=== PATIENT | female | born 1990 | race Caucasian/White ===

== ENCOUNTER 2017-12-14 05:58 | Inpatient (IN) ==
--- OUTSIDE RECORDS SUMMARY | 2017-12-14 06:07 | External Medical Summary | Continuity of Care Document ---
:1990 Author Organization [facility] Address [address] [place], [place] [address] Phone Allergies, Adverse Reactions, Alerts Substance Reaction Severity Status No Known Drug Allergies Unknown Active Medications Medication Instructions Dosage Effective Dates Status Comments (start - stop) 28 mg take 1 tablet by Not Available - Active iron-800 mcg oral route every tablet day Tylenol 325 mg take 1 tablet by - Active tablet oral route every 4 hours as needed as needed Problems Condition Effective Dates (start - stop) Clinical Status Suprvsn of preg w poor reprodctv or - obstet hx, first tri Pap Smear Screening, Cervix - 12 weeks gestation of - Procedures Procedure Date Pap Smear handling/transport Immuniz admnin, 1 vac, sngl/combo 19 Yrs + Flu Vaccine - Quadrivalent Initial OB Visit No 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 Results Test Name Date and Time Measure Units Reference Range Abnormal Flag Comments Panel Description: OBSTETRIC PANEL WHITE BLOOD CELL 10.2 Thousand/uL 3.8-10.8 N COUNT 14:48:00 RED BLOOD CELL 3.42 Million/uL 3.80-5.10 L COUNT 14:48:00 HEMOGLOBIN 11.0 g/dL 11.7-15.5 L 14:48:00 HEMATOCRIT 31.5 % 35.0-45.0 L 14:48:00 MCV 92.1 fL 80.0-100.0 N 14:48:00 MCH 32.2 pg 27.0-33.0 N 14:48:00 MCHC 34.9 g/dL 32.0-36.0 N 14:48:00 RDW 13.0 % 11.0-15.0 N 14:48:00 PLATELET COUNT 353 Thousand/uL 140-400 N 14:48:00 MPV 9.3 fL 7.5-12.5 N 14:48:00 ABSOLUTE 6936 cells/uL 2465-4691 N NEUTROPHILS 14:48:00 ABSOLUTE 2489 cells/uL 850-3900 N LYMPHOCYTES 14:48:00 ABSOLUTE 602 cells/uL 200-950 N MONOCYTES 14:48:00 ABSOLUTE 133 cells/uL 15-500 N EOSINOPHILS 14:48:00 ABSOLUTE 41 cells/uL 0-200 N BASOPHILS 14:48:00 NEUTROPHILS 68 % N 14:48:00 LYMPHOCYTES 24.4 % N 14:48:00 MONOCYTES 5.9 % N 14:48:00 EOSINOPHILS 1.3 % N 14:48:00 BASOPHILS 0.4 % N 14:48:00 ANTIBODY SCREEN, NO ANTIBODIES N RBC W/REFL ID, 14:48:00 DETECTED Reference range TITER AND AG No antibodies detected This assay is a screening test for the detection of red blood cell antibodies. The test is not to be used for pretransfusion screening or for the medical management of an alloimmunized . ABO GROUP B 14:48:00 RH TYPE RH(D) 14:48:00 POSITIVE RPR (DX) W/REFL NON-REACTIVE NON-REACTIV N TITER AND 14:48:00 E CONFIRMATORY TESTING HEPATITIS B NON-REACTIVE NON-REACTIV N SURFACE ANTIGEN 14:48:00 E RUBELLA ANTIBODY 11.20 index N Index (IGG) 14:48:00 Interpretation ----- <0.90 Not consistent with Immunity 0.90-0.99 Equivocal > or=1.00 Consistent with Immunity The presence of rubella IgG antibody suggests immunization or past or current infection withrubella virus.Test performed at [facility] [id number] [place] [address]Mirqqey r: JACOB AVILA DO,MPH Panel Description: HIV 1/2 ANTIGEN/ANTIBODY,FOURTH GENERATION W/RFL HIV NON-REACTIVE NON-REACTIVE N HIV-1 antigen and HIV-1/HIV- 2 antibodies were AG/AB, 14:48:00 notdetected. There is no laboratory evidence of 4TH GEN HIVinfection. PLEASE NOTE: This information has been disclosed toyou from records whose confidentiality may beprotected by state law. If your state requires suchprotection, then the state law prohibits you frommaking any further disclosure of the informationwithout the specific written consent of the personto whom it pertains, or as otherwise permitted by law.A general authorization for the release of medical orother information is NOT sufficient for this purpose. For additional information please refer [email or web address].[email or web address]/faq/XIH086(This link is being provided for informational/educational purposes only.) The performance of this assay has not been clinicallyvalidated in patients less than 2 years old. REPORT COMMENT:FASTING:NOTest performed at [facility] [id number] [place] [address]Cnszbgrg: JACOB AVILA DO,MPH Panel Description: Bacteria identified in Urine by Culture CULTURE, URINE, SEE NOTE A CULTURE, URINE, ROUTINE MICRO ROUTINE 15:14:00 NUMBER: [id number] TEST STATUS: PRELIMINARY SPECIMEN SOURCE: URINE SPECIMEN QUALITY: ADEQUATE RESULT: Greater than 100,000 CFU/mL of Escherichia coli , susceptibility test report to follow.REPORT COMMENT:RFASTING:UNKNOWNTest performed at [facility] [place] [address]Uiacoziy: JACOB AVILA DO,MPH Panel Description: Bacteria identified in Urine by Culture CULTURE, URINE, SEE NOTE A CULTURE, URINE, ROUTINE MICRO ROUTINE 15:14:00 NUMBER: [id number] TEST STATUS: FINAL SPECIMEN SOURCE: URINE SPECIMEN QUALITY: ADEQUATE RESULT: Greater than 100,000 CFU/mL of Escherichia coli E.coli INT JUNI AMOX/CLAVULANATE S <=2 AMPICILLIN S 4 AMP/SULBACTAM S 4 CEFAZOLIN NR <=4 1 CEFEPIME S <=1 CEFTRIAXONE S <=1 CIPROFLOXACIN S <=0.25 ERTAPENEM S <=0.5 GENTAMICIN S <=1 IMIPENEM S <=0.25 LEVOFLOXACIN S <=0.12 NITROFURANTOIN S <=16 PIP/TAZOBACTAM S <=4 TOBRAMYCIN S <=1 TRIMETHOPRIM/SULFA S <=20S=Susceptible I=Intermediate R=Resistant *=Not TestedNR=Not Reported NN=See Therapy CommentsTHERAPY COMMENTS Note 1: ORAL therapy: A cefazolin JUNI of < 32 predicts susceptibility to the oral agents cefaclor, cefdinir, cefpodoxime, cefprozil, cefuroxime, cephalexin, and loracarbef when used for therapy of uncomplicated UTIs due to E. coli, K. pneumoniae, and P. mirabilis. PARENTERAL therapy: A cefazolin JUNI of > 8 indicates resistance to parenteral cefazolin. An alternate test method must be performed to to confirm susceptibility to parenteral cefazolin.REPORT COMMENT:RFASTING:UNKNOWNTest performed at [facility] [address] [address]Yiigfpqh: JACOB AVILA DO,MPH Panel Description: CHLAMYDIA/N. GONORRHOEAE RNA, TMA CHLAMYDIA NOT DETECTED NOT DETECTED N TRACHOMATIS RNA, 15:16:00 TMA NEISSERIA NOT DETECTED NOT DETECTED N GONORRHOEAE RNA, 15:16:00 TMA [id number] SEE NOTE This test was 15:16:00 performed using the APTIMA COMBO2 Assay([employer] The analytical performance characteristics of this assay, when used to test SurePath specimens havebeen determined by [employer]. REPORT COMMENT:FASTING:UNKNO WNTest performed at [facility] [address] [address]Qutluboe: JACOB AVILA DO,MPH Panel Description: Pap Smear With HPV Reflex If ASCUS Document Pap Smear 13:15:00 See scanned report. Advance Directives Directive Yes / No Effective Date File Name Unknown Encounters Encounter Practice Location Reason(s) Diagnoses Date Provider Care Team Description For Visit [facility] preg w Srikanth. 700 Provider: JOSEP LOZANO reprodctv Medical [place] 1522, or obstet Center Duy [place], [place], [place], hx, first [place]juan 120, 700 Medical [id number], [place] triPap Van [place] tel:219 Smear [place], [place] 120, 6790 Screening, [id number], Van [place], Sppran29 [place]. [id number]. weeks tel:316 tel:316 gestation [phone] of Family History Family Member Diagnosis Age At Onset Brother Cerebral Palsy Daughter Beare -Saleh Brother Epilepsy Maternal Grandmother Breast Cancer Maternal Grandmother Colon Cancer Immunizations Vaccine Date Status Comments Influenza, injectable, completed Source: New Immunization Record quadrivalent, preservative free, 3 yrs or older Payers Payer name Insurance type Covered alliance party ID Authorization(s) [facility] [id number] Medicaid [facility] [id number] Medicaid Social History Type Description Quantity Date Captured Alcohol Use Details No Caffeine Use Details combo 1 cup per day Tobacco Use Status Light cigarette smoker (1-9 cigs/day) Smoking Status Current every day smoker Smoking Tobacco Use Cigarette: Years Used 15 Cigarette: No Details Available Details Vital Signs Date / Height Weight BMI Pulse Blood Temperature Respiratory Body Head BMI Time: Rate Pressure Rate Surface Circumference percentile Area 139.70 21.8 108/61 lbs 8 mm[Hg] 1:13 kg/m PM eter (2) Chief Complaint And Reason For Visit Unknown Chief Complaint And Reason For Visit Reason For Referral Reason For Referral Unknown Plan Of Care Date Type Action Status Goal Tobacco cessation counseling completed Appointment Jessica Conner BOOKED Future Order: Radiology Order Diagnostic Mammogram Right Breast Ordered ([id number]) Future Order: Radiology Order Breast Ultrasound Right Breast Ordered ([id number]) Date Type Problem Goal Intervention Status Start Date Unknown. History Of Present Illness Encounter Date Complaint History Of Present Illness This patient has no known history of present illness Functional Status Encounter Date Functional Assessment Cognitive Assessment Unknown Medications Administered Medication Instructions Dosage Effective Dates (start - stop) Status Comments Drug Treatment Unknown Instructions Date Instruction Additional Information use of any medications (including supplements, vitamins, herbs, OTC drugs) smoking counseling domestic violence seat belt use childbirth classes / hospital facilities hospital registration genetic testing new ob handbook Zika virus assessment & precautions exercise indications for ultrasound influenza vaccine environmental / work hazards travel HIV and other routine tests risk factors identified by history anticipated course of care tobacco (ask, advise, assess, assist and arrange) alcohol illicit / recreational drugs nutrition and weight gain counseling, special diet toxoplasmosis precautions (cats / raw meat) sexual activity
--- OUTSIDE RECORDS SUMMARY | 2017-12-14 06:07 | External Medical Summary | Continuity of Care Document ---
:1990 Author Organization [facility] Address [address] [place], [place] [address] Phone Allergies, Adverse Reactions, Alerts Substance Reaction Severity Status No Known Drug Allergies Unknown Active Medications Medication Instructions Dosage Effective Status Comments Dates (start - stop) Keflex 500 mg take 1 capsule by - Active capsule ORAL route 3 times every day x 5 days, then q hs remainder of nitrofurantoin take 1 capsule by - Active macrocrystal 50 mg oral route daily capsule for remainder of pregnacy 28 mg take 1 tablet by Not Available - Active iron-800 mcg tablet oral route every day Tylenol 325 mg take 1 tablet by - Active tablet oral route every 4 hours as needed as needed nitrofurantoin take 1 capsule by 100 MG - No Longer monohydrate/macrocry oral route every Active stals 100 mg capsule 12 hours with food Problems Condition Effective Dates (start - stop) Clinical Status Suprvsn of preg w poor reprodctv or - obstet hx, first tri Pap Smear Screening, Cervix - 12 weeks gestation of - Suprvsn of preg w poor reprodctv or - obstet hx, third tri Unsp infection of urinary tract in - , unsp trimester 32 weeks gestation of - Unspecified Lump In The Right Breast, - Unspecified Quadrant Suprvsn of preg w history of pre-term - labor, second tri Suprvsn of preg w poor reprodctv or - obstet hx, second tri 24 weeks gestation of - Suprvsn of preg w history of pre-term - labor, second tri Suprvsn of preg w poor reprodctv or - obstet hx, second tri 19 weeks gestation of - Suprvsn of preg w poor reprodctv or - obstet hx, second tri 15 weeks gestation of - Suprvsn of preg w poor reprodctv or - obstet hx, third tri 32 weeks gestation of - Suprvsn of preg w poor reprodctv or - obstet hx, third tri 30 weeks gestation of - Abnormal Pap, LSIL Encounter for suprvsn of normal , third trimester 28 weeks gestation of - Encounter for suprvsn of normal - , second trimester 19 weeks gestation of - Procedures Procedure Date Unknown Results Test Name Date and Time Measure Units Reference Range Abnormal Flag Comments Unknown Advance Directives Directive Yes / No Effective Date File Name Unknown Encounters Encounter Practice Location Reason(s) Diagnoses Date Provider Care Team Description For Visit Members Melissa Araujo Suprvsn of preg Oct- Duy Referring In Womens w poor reprodctv [facility]. 700 Provider: souleymane Kim hx, 8 Medical Divina [address] third [facility], 1522, infection of Dejuan Finn [address], urinary tract in [address] [place], , unsp [place], [address], [id number], [id number] [facility] weeks gestation [id number] [place], [address]. tel: of , [place]. tel: [phone] tel: [phone] Melissa Araujo Suprvsn of preg Oct-1 Duy Referring In Womens Ultrasound w poor reprodctv [facility]. 700 Provider: souleymane Kimet hx, 8 Medical Div[facility] PO Box third tri32 [facility], 1522, weeks gestation [place] Finn [address] [place], of [address] [place], [place], [address], [id number], [place], [place], [id number] [place], [address]. tel: , [place]. tel: tel: [phone] Associates Van Mar-0 Duy In Womens 2-201 [facility]. 700 Health [place], 8 Medical [address] [place] [address]22, Dejuan Finn, 120, [place], [place], [id number], [place], [place] [id number] tel: , [place]. tel: [phone] Melissa Araujo Mar-0 Sobbing In Womens -201 [place]. Health BLAKE, 8 700 PO Box [facility] 1522, [place], [place], [id number], 120, [place], [place]: [place], [address], [place]. tel: [phone] Melissa Araujo Suprvsn of preg Fe-2 Duy Referring In Womens w poor reprodctv 7- [facility]. 700 Provider: Hope LOZANO, or sukhdevet hx, 8 Medical [facility] PO Box third tri30 [facility], 1522, weeks gestation Dejuan Finn [address] [place], of [address] [place], [place], [address], [id number], [place], [place], [id number] [place], [address]. tel: , [place]. tel: tel: [phone] Melissa Araujo Abnormal Pap, Sep-0 Duy Referring In Womens LSILEncounter 9- [facility]. 700 Provider: Hope LOZANO, for suprvsn of 8 Medical [facility] PO Box normal [facility], 1522, , third Dejuan Finn 9300 [address]i [place], [id number] [address] [place], weeks gestation [place], [address], [id number], of [place], [place], [id number] [place], [address]. tel: , [place]. tel: tel: [phone] Melissa Araujo Unspecified Lump Sobbing Referring In Womens In The Right 2- [place]. Provider: Hope LOZANO, Breast, 8 700 Divina PO Box Unspecified [facility], 1522, QuadrantSuprvsn [place] [address] [place], of preg w [address], [address] [place], history of [address], [id number], pre-term labor, 120, [place], [place], [address]. tel: triSuprvsn of [place], tel: preg w poor [phone], [id number] reprodctv or [place]. obstet hx, tel: [phone] weeks gestation of Associates Van Encounter for Dec-1 Duy Referring In Womens suprvsn of [facility]. 700 Provider: Health BLAKE, normal 7 Medical Divina PO Box , [facility], 1522, second [place]juan Finn E [place], [id number] [address], [address] [place], weeks gestation [place], [address], [id number], of [place], [place] [id number] [place], [address]. tel: , [place]. tel: tel: [phone] Associates Van Suprvsn of preg Dec-1 Duy Referring In Womens Ultrasound w history of [facility]. 700 Provider: Hope LOZANO, pre-term labor, 7 Medical [facility] PO Box second [facility], 1522, triSuprvsn of Dejuan Finn [address] [place], preg w poor 120, [address] [place], reprodctv or [place], [address], [id number], obstet hx, [place], [place], [place] second tri19 [id number] [place], [address]. tel: weeks gestation , [place]. tel: of tel: [phone] Associates Van Suprvsn of preg Nov-1 Duy Referring In Womens w poor reprodctv -201 [facility]. 700 Provider: Hope LOZANO, or obstet hx, 7 Medical Div[facility] PO Box second tri15 [facility], 1522, weeks gestation [place]juan Finn [address] [place], of [address] [place], [place], [address], [id number], [place], [place], [place] [id number] [place], [address]. tel: , [place]. tel: tel: [phone] Associates Van Suprvsn of preg May- Duy Referring In Womens w poor reprodctv 5-201 [place] [address] Provider: Hope LOZANO, souleymane avery hx, 7 [facility] Box first triPap Center Duy R, 1522, Smear Screening, , Dejuan 700 [place], [id number] weeks 120, Medical [place], gestation of [address] [place] [address] [id number], [place], [place]ju[place] 120, [place] [id number] [place], tel: , [place]. [place], tel: [phone]. [phone] tel:[phone] Family History Family Member Diagnosis Age At Onset Brother Cerebral Palsy Daughter Beare -Saleh Brother Epilepsy Maternal Grandmother Breast Cancer Maternal Grandmother Colon Cancer Immunizations Vaccine Date Status Comments Influenza, injectable, completed Source: New Immunization Record quadrivalent, preservative free, 3 yrs or older Payers Payer name Insurance type Covered green party ID Authorization(s) [facility] [id number] Medicaid [facility] [id number] Medicaid Social History Type Description Quantity Date Captured Unknown Vital Signs Date / Height Weight BMI Pulse Blood Temperature Respiratory Body Head BMI Time: Rate Pressure Rate Surface Circumference percentile Area Unknown Chief Complaint And Reason For Visit Unknown Chief Complaint And Reason For Visit Reason For Referral Reason For Referral Unknown Plan Of Care Date Type Action Status Goal Tobacco cessation counseling completed Future Order: Radiology Order Diagnostic Mammogram Right Breast Ordered ([id number]) Future Order: Radiology Order Breast Ultrasound Right Breast Ordered ([id number]) Future Order: Radiology Order Complete OB Ultrasound > 14 Ordered Weeks ([id number]) Future Order: Radiology Order Ultrasound OB Follow-up ([id number]) Ordered Date Type Problem Goal Intervention Status Start [...]
--- OUTSIDE RECORDS SUMMARY | 2017-12-14 06:07 | External Medical Summary | Continuity of Care Document ---
:1988 Author Organization [facility] Address [address] [place], [place] [address] Phone Allergies, Adverse Reactions, Alerts Substance Reaction [...] second tri 15 weeks gestation of - Procedures Procedure Date Unknown Results Test Name Date and Time Measure Units Reference Range Abnormal Flag Comments Unknown Advance Directives Directive Yes / No Effective Date File Name Unknown Encounters Encounter Practice Location Reason(s) Diagnoses Date Provider Care Team Description For Visit [facility] [place] Referring [facility] preg w Srikanth. 700 Provider: JOSEP LOZANO reprodctv Medical [facility] 1522, or obstet Center Omar Finn, 9300 [address], hx, second [place]ju[place] 120, [address] [id number], [place] tri15 weeks [place], [address], tel:[phone] gestation Britney MEJIAS 6790 [place] [id number], [place], [id number]. [place]. tel:[phone] tel:[phone] Associates In [facility] -2016 Srikanth. 700 JOSEP LOZANO Medical 1522, Center Britney Finn [place], [place] 120, [id number], [place] Van tel:219 [place], 6790 [id number], [place]. tel:[phone] [facility]uy Referring Wom[facility] Health preg w Srikanth. 700 Provider: JOSEP LOZANO reprodctv Medical [place] 1522, or obstet Center Duy Finn, Britney [place], hx, first [place] 120, 700 Medical [id number], [place] triPap Van [place] tel:9 Smear [place], [place] 120, 6790 Screening, [id number], [place], [id number] [place]. [id number]. weeks tel: tel: gestation [phone] of Family History Family Member Diagnosis Age At Onset Brother Cerebral Palsy Daughter Bill -Delfino Brother Epilepsy Maternal Grandmother Breast Cancer Maternal Grandmother Colon Cancer Immunizations Vaccine Date Status Comments Influenza, injectable, completed Source: New Immunization Record quadrivalent, preservative free, 3 yrs or older Payers Payer name Insurance type Covered green party ID Authorization(s) [facility] [id number] Medicaid [facility] [id number] Medicaid Social History Type Description Quantity Date [...] cessation counseling completed Appointment Jessica Conner BOOKED Appointment Jessica Conner BOOKED Future Order: Radiology Order Diagnostic Mammogram Right Breast Ordered ([id number]) Future Order: Radiology Order Breast Ultrasound Right Breast Ordered ([id number]) Date Type Problem Goal Intervention Status Start [...]
--- OUTSIDE RECORDS SUMMARY | 2017-12-14 06:07 | External Medical Summary | Continuity of Care Document ---
:1990 Author Organization [facility] Address [address] [place], [place] [address] Phone Allergies, Adverse Reactions, Alerts Substance Reaction Severity Status No Known Drug Allergies Unknown Active Medications Medication Instructions Dosage Effective Dates Status Comments (start - stop) 28 mg take 1 tablet by Not Available - Active iron-800 mcg oral route every tablet day Tylenol 325 mg take 1 tablet by - Active tablet oral route every 4 hours as needed as needed cephalexin 500 mg take 1 capsule by 500 MG - No Longer capsule ORAL route 4 times Active every day Problems Condition Effective Dates (start - stop) [...] Description For Visit Members Associates In [facility] Suprvsn of Duy Referring [facility] preg w -2016 Srikanth. 700 Provider: BLAKE, PO Box reprodctv Medical [facility] 1522, or obstet Center Omar Finn, 9300 [place], [place], hx, second [place] 120, [address] [id number], [place] tri15 weeks [place], [address], tel:[phone] gestation RANDELL, Britney, 6790 [place] [id number], [place], [address]. [place]. tel:[phone] tel:[phone] Associates In Van [facility]2016 [place]. 700 JOSEP LOZANO Medical 1522, Center Britney Finn [place], [place] 120, [id number], [place] Van, tel:219 [place], 6790 [id number], [place]. tel:[phone] Associates In [facility] w Srikanth. 700 Provider: JOSEP LOZANO reprodctv Medical [place] 1522, or obstet Center Duy Finn, RANDELL Tan, hx, first [place] 120, 700 Medical [id number], [place] triPap [place] tel: Smear [place], [place] 120, 6790 Screening, [id number], Van [place], Ousvwc30 [place]. [id number]. weeks tel: tel:316 gestation [phone] of Family History Family Member Diagnosis Age At Onset Brother Cerebral Palsy Daughter Beare -Saleh Brother Epilepsy Maternal Grandmother Breast Cancer Maternal Grandmother Colon Cancer Immunizations Vaccine Date Status Comments Influenza, injectable, completed Source: New Immunization Record quadrivalent, preservative free, 3 yrs or older Payers Payer name Insurance type Covered democrat ID Authorization(s) [facility] [id number] Medicaid [employer] [facility] [place] [id number] Medicaid Social History Type Description Quantity Date [...] Radiology Order Breast Ultrasound Right Breast Ordered ([id number]) Date Type Problem Goal Intervention Status Start [...]
--- OUTSIDE RECORDS SUMMARY | 2017-12-14 06:07 | External Medical Summary | Continuity of Care Document ---
:1990 Author Organization [facility] Address [address] [place], [place] [id number] Phone Allergies, Adverse Reactions, Alerts Substance Reaction Severity Status No Known Drug Allergies Unknown Active Medications Medication Instructions Dosage Effective Dates Status Comments (start - stop) amoxicillin 500 mg take 1 capsule by 500 MG - Active capsule ORAL route every 8 hours 28 mg take 1 tablet by Not Available - Active iron-800 mcg tablet oral route every day Tylenol 325 mg take 1 tablet by - Active tablet oral route every 4 hours as needed as needed Problems Condition Effective Dates (start - stop) Clinical Status Suprvsn of preg w history of pre-term - labor, second tri Suprvsn of preg w poor reprodctv or - obstet hx, second tri 19 weeks gestation of - Suprvsn of preg w poor reprodctv or - obstet hx, first tri Pap Smear Screening, Cervix - 12 weeks gestation of - Encounter for suprvsn of normal - , second trimester 19 weeks gestation of - Suprvsn of preg w poor reprodctv or - obstet hx, second tri 15 weeks gestation of - Procedures Procedure Date Ultrasound exam of preg uterus, complete Results Test Name Date and Time Measure Units Reference Range Abnormal Flag Comments Unknown Advance Directives Directive Yes / No Effective Date File Name Unknown Encounters Encounter Practice Location Reason(s) Diagnoses Date Provider Care Team Description For Visit Members Melissa Araujo Encounter Duy Referring In [facility] for suprvsn -2016 Srikanth. 700 Provider: Health BLAKE, of normal Medical [facility] [address], , [place], [place], second , Dejuan [address] [id number], [id number] [address] [place] weeks [place], [address], tel: gestation of Britney MEJIAS, [id number] [place], [address]. , [place]. tel: tel: [phone] Melissa Araujo Suprvsn of Duy Referring In Womens Ultrasound preg w -2016 Srikanth. 700 Provider: Health PA, history of Medical [facility] [address], pre-term Center [facility] [place], labor, , Dejuan [address] , second [address], [address] [place] triSuprvsn [place], [address], tel: of preg w Britney MEJIAS, [address] poor [id number] [place], [address]. reprodctv or , [place]. tel: obstet hx, tel:[phone] second tri19 [id number] weeks gestation of Associates [place] Suprvsn of Duy Referring In Womens preg w poor -2016 Srikanth. Twin Provider: Health PA, reprodctv or Medical [facility] [address], obstet hx, Center [facility] [place], second tri15 , Rust [address] , weeks 120, [address] [place] gestation of [place], [address], tel: Britney MEJIAS, [id number] [place], [address]. , [place]. tel: tel: [phone] Melissa Araujo Suprvsn of Duy Referring In Womens preg w poor -2016 Srikanth. Twin Provider: Health PA, reprodctv or Medical Srikanth [address], obstet hx, Center Duy R, Britney [place], first triPap , Dejuan 700 [id number], Smear 120, Medical [place] [facility] tel: [id number] [place], Dejuan 120, [address] weeks [id number] [place], gestation of , [place]. [place], tel:[phone]. [id number] tel:[phone] Family History Family Member Diagnosis Age At Onset Brother Cerebral Palsy Daughter Bill Rock Brother Epilepsy Maternal Grandmother Breast Cancer Maternal Grandmother Colon Cancer Immunizations Vaccine Date Status Comments Influenza, injectable, completed Source: New Immunization Record quadrivalent, preservative free, 3 yrs or older Payers Payer name Insurance type Covered constitution party ID Authorization(s) [facility] - [id number] Medicaid [facility] - [id number] Medicaid Social History Type Description Quantity Date [...] Jessica Conner BOOKED Future Order: Radiology Order Complete OB Ultrasound > 14 Ordered Weeks ([id number]) Future Order: Radiology Order Diagnostic Mammogram Right Breast Ordered ([id number]) Future Order: Radiology Order Breast Ultrasound Right Breast Ordered ([id number]) Date Type Problem Goal Intervention Status Start [...]
--- OUTSIDE RECORDS SUMMARY | 2017-12-14 06:07 | External Medical Summary | Continuity of Care Document ---
:1990 Author Organization [facility] Address [address] [place], [place] [id number] Phone Allergies, Adverse Reactions, Alerts Substance Reaction [...] weeks gestation of - Procedures Procedure Date OB Visit No Charge Results Test Name Date and Time Measure Units Reference Range Abnormal Flag Comments Unknown Advance Directives Directive Yes / No Effective Date File Name Unknown Encounters Encounter Practice Location Reason(s) Diagnoses Date Provider Care Team Description For Visit Members [facility] Referring [facility] preg w Srikanth. 700 Provider: JOSEP LOZANO reprodctv Medical [place] 1522, or obstet Center Omar Finn, [address] [place], hx, second Dejuan 120, [address] [id number], [place] tri15 weeks [place], [address], tel:[phone] gestation [place], Britney, 6790 of [id number], [place], [address]. [place]. tel:[phone] tel:[phone] [facility] [place] Referring [facility] preg w poor -2017 Srikanth. 700 Provider: JOSEP LOZANO reprodctv Medical [place] 1522, or obstet Center , Duy Gorman, [place], [place], hx, first Dejuan 120, 700 Medical [id number], [place] Scout [place] tel:219 Smear [place], Dejuan 120, 6790 Screening, [id number], RANDELL Ara[place], [id number] [place]. [id number]. weeks tel: tel:316 gestation [phone] of Family History Family Member Diagnosis Age At Onset Brother Cerebral Palsy Daughter Bill -Delfino Brother Epilepsy Maternal Grandmother Breast Cancer Maternal Grandmother Colon Cancer Immunizations Vaccine Date Status Comments Influenza, injectable, completed Source: New Immunization Record quadrivalent, preservative free, 3 yrs or older Payers Payer name Insurance type Covered constitution party ID Authorization(s) [facility] [id number] Medicaid [facility] [id number] Medicaid Social History Type Description Quantity Date Captured Alcohol Use Details No Caffeine Use Details Unknown Tobacco Use Status Smoking Status Current every day smoker Vital Signs Date / Height Weight BMI Pulse Blood Temperature Respiratory Body Head BMI Time: Rate Pressure Rate Surface Circumference percentile Area 141.70 22.1 lbs 9 mm[Hg] 1:55 kg/m PM eter (2) Chief Complaint And Reason For Visit Unknown Chief Complaint And Reason For Visit Reason For Referral Reason For Referral Unknown Plan Of Care Date Type Action Status Goal Tobacco cessation counseling completed Appointment Jessica Conner BOOKED Appointment Jessica Conner BOOKED Future Order: Radiology Order Diagnostic Mammogram Right Breast Ordered ([id number]) Future Order: Radiology Order Breast Ultrasound Right Breast Ordered ([id number]) Date Type Problem Goal Intervention Status Start [...]
--- OUTSIDE RECORDS SUMMARY | 2017-12-14 06:08 | External Medical Summary | Continuity of Care Document ---
:1988 Author Organization [facility] Address [address] [place], [place] [address] Phone Allergies, Adverse Reactions, Alerts Substance Reaction Severity Status No Known Drug Allergies Unknown Active Medications Medication Instructions Dosage Effective Dates Status Comments (start - stop) amoxicillin 875 take 1 tablet by Not Available - Active mg-potassium oral route every 12 clavulanate 125 mg hours tablet Keflex 500 mg take 1 capsule by - Active capsule ORAL route 3 times every day x 5 days, then q hs remainder of 28 mg take 1 tablet by Not Available - Active iron-800 mcg tablet oral route every day Tylenol 325 mg take 1 tablet by - Active tablet oral route every 4 hours as needed as needed Problems Condition Effective Dates (start - stop) Clinical Status Suprvsn of preg w history of pre-term - labor, third trimester Suprvsn of preg w poor reprodctv or - obstet hx, third tri Encounter for suprvsn of normal - , third trimester 36 weeks gestation of - Suprvsn of preg w poor reprodctv or - obstet hx, first tri Pap Smear Screening, Cervix - 12 weeks gestation of - Suprvsn of preg w poor reprodctv or - obstet hx, third tri Unsp infection of urinary tract in - , unsp trimester 32 weeks gestation of - Decreased movements, third - trimester, unsp Gross hematuria - Encounter for suprvsn of normal - , third trimester 38 weeks gestation of - Unspecified Lump In [...] reprodctv or - obstet hx, third tri 39 weeks gestation of - Suprvsn of preg [...] second trimester 19 weeks gestation of - Encounter for suprvsn of normal - , third trimester 38 weeks gestation of - Encounter for suprvsn of normal - , third trimester 36 weeks gestation of - Encounter for suprvsn of normal - , third trimester 34 weeks gestation of - Procedures Procedure Date 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 Provider: Health PA, obstet hx, third 8 [facility] [address] weeks [facility], 1522, gestation of Dejuan Finn E Britney, [address] [place], [place], [address], [id number], [place], [place], [place] [id number] [place], [address]. tel: , [place]. tel: tel: [phone] Associates Van Decreased Apr-2 Duy Referring In Womens movements, third 3-201 Srikanth. 700 Provider: Hope LOZANO, trimester, 8 [facility] PO Box unspGross [facility], 1522, hematuriaEncounte Dejuan Finn E Britney, r for suprvsn of 120, [address] [place], normal , [place], [address], , third [email or web address] [facility], [place] [id number] [place], [address]. tel: of , [place]. tel: tel: [phone] Melissa Araujo Encounter for Apr-2 Duy Referring In Womens suprvsn of normal 0-201 Srikanth. 700 Provider: Hope LOZANO, , third 8 [facility] [address] [email or web address] weeks [facility], 1522, gestation of Dejuan Finn E Britney, [address], [address] [place], [place], [address], [id number], [place], [place], [place] [id number] [place], [address]. tel: , [place]. tel: tel: [phone] Melissa Araujo Suprvsn of preg w Apr-1 Duy Referring In Womens history of 1-201 Srikanth. 700 Provider: Hope LOZANO, pre-term labor, 8 Medical [facility] PO Box [facility], 1522, trimesterSuprvsn Dejuan Finn 93Arnie E Britney, of preg w poor 120, [address] [place], reprodctv or [place], [address], [id number], obstet hx, third [place], [place], [place] triEncounter [place] [id number] [place], [address]. tel: suprvsn of normal , [place]. tel: , third tel: [phone] weeks [id number] gestation of Melissa Araujo Encounter for Apr-0 Duy Referring In Womens suprvsn of normal 6-201 Srikanth. 700 Provider: Hope LOZANO, , third 8 Medical Srikanth [address] [email or web address] weeks Center Duy R, 1522, gestation of Dejuan Finn, 120, Medical [facility] [id number], RANDELL, Dejuan 120, [place] [id number] [place], tel: , [place]. [place], tel: [phone]. [id number] tel:[phone] Melissa Araujo Encounter for Mar-2 Duy Referring In Womens suprvsn of normal 3-201 Srikanth. 700 Provider: Hope LOZANO, , third 8 [facility] [address] [email or web address] weeks [facility], 1522, gestation of Dejuan Finn Arnie Tan, [address], [address] [place], [place], [address], , [facility], [place] [id number] [place], [address]. tel: , [place]. tel: tel: [phone] Melissa Araujo Suprvsn of preg w Mar-1 Duy Referring In Womens poor reprodctv or 4-201 Srikanth. 700 Provider: Hope LOZANO, obstet hx, third 8 [facility] PO Box triUnsp infection [facility], 1522, of urinary tract Dejuan Finn, in , [address], [address] [place], unsp [id number] [place], [address], [id number], weeks gestation [place], [place] [id number] [place], [address]. tel: , [place]. tel: tel: [phone] Melissa Araujo Suprvsn of preg w Mar-1 Duy Referring In Womens Ultrasound poor reprodctv or 4-201 Srikanth. 700 Provider: Hope LOZANO obstet hx, third 8 [facility] [address] tri32 weeks [facility], 1522, gestation of Dejuan Finn, [address], [address] [place], [place], [address], [id number], [place], [facility] [id number] [place], [address]. tel: , [place]. tel: tel: [phone] Associates [facility] Suprvsn of preg w Feb-2 Duy Referring In Womens poor reprodctv or 7-201 Srikanth. 700 Provider: Hope LOZANO, obstet hx, third 8 Medical [facility] [address] tri30 weeks [facility], 1522, gestation of Dejuan Finn [address] Britney, [address], [address] [place], [place], [address], [id number], [place], [place], [id number] [place], [address]. tel: , [place]. tel: tel: [phone] Associates [facility] Abnormal Pap, Feb-0 Duy Referring In Womens LSILEncounter for 9-201 Srikanth. 700 Provider: brent Kimvsn of normal 8 Medical [facility] PO Box , third Center [place], 1522, [email or web address] weeks Dejuan Finn [address] Britney, gestation of 120, [address] [place], [place], [address], [id number], [place], [place], [id number] [place], [address]. tel: , [place]. tel: tel: [phone] Associates [facility] Unspecified Lump Eron- Sobbing Referring In Womens In The Right 2-201 Mikey. Provider: Hope LOZANO, Breast, 8 700 [facility]ina PO Box Unspecified Medical [place], 1522, QuadrantSuprvsn Center [address] Britney, of preg w history Drive, [address] [place], of pre-term Suite [address], [id number], labor, second 120, [place], [place], [address]. tel: preg [place] poor [place], [place] [phone], [id number] obstet hx, second [place]. tri24 weeks tel: gestation of [phone] Associates Van Encounter for Dec-1 Duy Referring In Womens suprvsn of normal 4-201 Srikanth. 700 Provider: Hope LOZANO, , second 7 Medical [facility] PO Box [email or web address] weeks [facility], 1522, gestation of Dejuan Finn Arnie Tan, [address], [address] [place], [place], [address], [id number], [place], [place], [place] [id number] [place], [address]. tel: , [place]. tel: tel: [phone] Melissa Araujo Suprvsn of preg w Dec-1 Duy Referring In Womens Ultrasound history of 4-201 Srikanth. 700 Provider: Hope LOZANO, pre-term labor, 7 Medical [facility] PO Box second triSuprvsn [facility], 1522, of preg w poor Dejuan Finn E Britney, reprodctv or 120, [address] [place], obstet hx, second [place], [address], [id number], tri19 weeks [place], [place], [place] [id number] [place], [address]. tel: , [place]. tel: tel: [phone] Melissa Araujo Suprvsn of preg w Nov-1 Duy Referring In Womens poor reprodctv or 5-201 Srikanth. 700 Provider: Hope LOZANO, obstet hx, second 7 Medical [facility] [address] tri15 weeks [facility], 1522, gestation of Dejuan Finn Arnie Tan, [address], [address] [place], [place], [address], [id number], [place], [place], [place] [id number] [place], [address]. tel: , [place]. tel: tel: [phone] Melissa Araujo Suprvsn of preg w Oct-2 Duy Referring In Womens poor reprodctv or 5-201 Srikanth. 700 Provider: Hope LOZANO, obstet hx, first 7 Medical Srikanth PO Box triPap Smear [facility] R, 1522, Screening, Dejuan Finn, [id number] weeks 120, Medical [place], gestation of [facility] , RANDELL, Dejuan 120, [place] [id number] [place], tel: , [place]. [place] tel: [phone]. [id number] tel:[phone] Family History Family Member Diagnosis Age At Onset Brother Cerebral Palsy Daughter Bill Rock Brother Epilepsy Maternal Grandmother Breast Cancer Maternal Grandmother Colon Cancer Immunizations Vaccine Date Status Comments Tdap completed Source: New Immunization Record Influenza, injectable, completed Source: New Immunization Record quadrivalent, preservative free, 3 yrs or older Payers Payer name Insurance type Covered alliance party ID Authorization(s) [facility] - [id number] Medicaid [employer] [place] [id number] Medicaid [employer] [place] [id number] Medicaid Social History Type Description Quantity Date Captured Alcohol Use Details No Caffeine Use Details combo 1 cup per day Tobacco Use Status Light cigarette smoker (1- cigs/day) Smoking Status Current every day smoker Vital Signs Date / Height Weight BMI Pulse Blood Temperature Respiratory Body Head BMI Time: Rate Pressure Rate Surface Circumference percentile Area 176.20 27.5 109/57 -2018 lbs 9 mm[Hg] 2:22 kg/m PM eter (2) Chief Complaint And Reason For Visit Unknown Chief Complaint And Reason For Visit Reason For Referral Reason For Referral Unknown Plan Of Care Date Type Action Status Goal Tobacco cessation counseling completed Appointment Jessica Conner BOOKED Future Order: Radiology Order Diagnostic Mammogram Right Breast Ordered ([id number]) Future Order: Radiology Order Breast Ultrasound Right Breast Ordered ([id number]) Future Order: Radiology Order Complete OB Ultrasound > 14 Ordered Weeks ([id number]) Future Order: Radiology Order Ultrasound OB Follow-up ([id number]) Ordered Date Type Problem Goal Intervention Status [...]
--- OUTSIDE RECORDS SUMMARY | 2017-12-14 06:08 | External Medical Summary | Continuity of Care Document ---
:1990 Author Organization [facility] Address [address] [place], [place] [id number] Phone Allergies, Adverse Reactions, Alerts Substance Reaction [...] Effective Dates (start - stop) Clinical Status Encounter for suprvsn of normal - , [...] weeks gestation of - Procedures Procedure Date Immuniz admnin, 1 vac, sngl/combo 19 Yrs + TDAP VACCINE >7 IM OB Visit No Charge Results Test Name Date and Time Measure Units Reference Range Abnormal Flag Comments Panel Description: Strep Gp B Culture Strep Gp B Negative Negative Centers for Disease Control Culture 14:13:00 and Prevention (CDC) and [place] Congressof Obstetricians and Gynecologists (ACOG) guidelines for prevention ofperinatal group B streptococcal (GBS) disease specify co-collection ofa vaginal and rectal swab specimen to maximize sensitivity of GBSdetection. Per the CDC and ACOG, swabbing both the lower vagina andrectum substantially increases the yield of detection compared withsampling the vagina alone. .Penicillin G, ampicillin, or cefazolin are indicated for intrapartumprophylaxis of GBS colonization. Reflex susceptibilitytesting should be performed prior to use of clindamycin only on GBSisolates from penicillin-allergic women who are considered a high riskfor anaphylaxis. Treatment with vancomycin without additional testingis warranted if resistance to clindamycin is noted. Advance Directives Directive Yes / No Effective Date File Name Unknown Encounters Encounter Practice Location Reason(s) Diagnoses Date Provider Care Team Description For Visit Members Associates Van Decreased Apr-2 Duy Referring In Womens movements, third 3-201 Srikanth. 700 Provider: Hope LOZANO, trimester, 8 Medical [facility] unspGross [facility], 152, hematuriaEncounte Dejuan Finn [address] for suprvsn of [address], [address] [place], normal , [place], [address], , third [id number] [facility], weeks gestation [id number] [place], [address]. tel: of , [place]. tel: tel: [phone] Melissa Araujo Encounter for Apr-2 Duy Referring In Womens suprvsn of normal 0-201 Srikanth. 700 Provider: Hope LOZANO, , third 8 Medical [facility] [address] [email or web address] weeks [facility], 152, gestation of Dejuan Finn [address], [address], [address] [place], [place], [address], , [place], [place] [id number] [place], [address]. tel: , [place]. tel: tel: [phone] Melissa Araujo Suprvsn of preg w Apr-1 Duy Referring In Womens history of 1-201 Srikanth. 700 Provider: Hope LOZANO, pre-term labor, 8 Medical Divina PO Box [facility], 1522, trimesterSuprvsn Dejuan Finn [address] [place], of preg w poor 120, [address] [place], reprodctv or [place], [address], [id number], obstet hx, third [place], [place], triEncounter [place] [id number] [place], [address]. tel: suprvsn of normal , [place]. tel: , third tel: [phone] weeks [id number] gestation of Associates Van Encounter for Apr-0 Duy Referring In Womens suprvsn of normal 6-201 Srikanth. 700 Provider: Hope LOZANO, , third 8 Medical Srikanth PO Box [email or web address] weeks Center Duy R, 1522, gestation of Dejuan Finn 700 [place], 120, Medical Van MEJIAS, [place] [id number], RANDELL, Dejuan 120, [place] [id number] [place], tel: , [place]. [place], tel:[phone]. [id number] tel:[phone] Melissa Araujo Encounter for Mar-2 Duy Referring In Womens suprvsn of normal 3-201 Srikanth. 700 Provider: Hope LOZANO, , third 8 Medical [facility] [address] [email or web address] weeks Center Omar, 1522, gestation of Dejuan Finn [address], 120, [address] Van [place]JIAS, [address], [id number], [facility], [id number] [place], [address]. tel: , [place]. tel: tel: [phone] Melissa Araujo Suprvsn of preg w Mar-1 Duy Referring In Womens poor reprodctv or 4-201 Srikanth. 700 Provider: Hope LOZANO, obstet hx, third 8 Medical [facility] PO Box triUnsp infection Center [place], 1522, of urinary tract Dejuan Finn [address], in , 120, [address] [place], uns [id number] [place], [address], [id number], weeks gestation [place], [place] [id number] [place], [address]. tel: , [place]. tel: tel: [phone] Melissa Araujo Suprvsn of preg w Mar-1 Duy Referring In Womens Ultrasound poor reprodctv or 4-201 Srikanth. 700 Provider: Hope LOZANO obstet hx, third 8 Medical Div[facility] PO Box tri32 weeks Center [place], 1522, gestation of Dejuan Finn Arnie Tan, 120, [address] [place], [place], [address], , [place], [place], [id number] [place], [address]. tel: , [place]. tel: tel: [phone] Melissa Araujo Suprvsn of preg w Feb-2 Duy Referring In Womens poor reprodctv or [place]. 700 Provider: sukhdev Kimet hx, third 8 Medical Divina PO Box tri30 weeks Center [place], 1522, gestation of Dejuan Finn Arnie Tan, [address], [address] [place], [place], [address], , [place], [place], [place] [id number] [place], [address]. tel: , [place]. tel: tel: [phone] Melissa Araujo Abnormal Pap, Feb-0 Duy Referring In W[facility]ens [facility] for [place]. 700 Provider: coral Kimn of normal 8 Medical Divina PO Box , third Center [place], 1522, [email or web address] weeks Dejuan Finn, gestation of 120, [address] [place], [place], [address], [id number], [place], [place], [place] [id number] [place], [address]. tel: , [place]. tel: tel: [phone] Melissa Araujo Unspecified Lump Sobbing Referring In Womens In The Right [place]. Provider: Hope LOZANO, Breast, 8 700 Divina PO Box Unspecified Medical [place], 1522, QuadrantSuprvsn Center Donaldo Tan, of preg w history Drive, [address] [place], of pre-term [address], , labor, second 120, [place], [place], [address]. tel: preg w poor [place], tel:[phone] [place] [address], [id number] obstet hx, second [place]. tri24 weeks tel: gestation of [phone] Associates Van Encounter for Dec-1 Duy Referring In Womens suprvsn of normal 4-201 Srikanth. 700 Provider: Hope LOZANO, , second 7 Medical Divina PO Box [email or web address] weeks [facility], 1522, gestation of Dejuan Finn, 120, [address] [place], [place], [address], [id number], [place], [place], [place] [id number] [place], [address]. tel: , [place]. tel: tel: [phone] Associates Van Suprvsn of preg w Dec-1 Duy Referring In Womens Ultrasound history of 4-201 Srikanth. 700 Provider: Hope LOZANO, pre-term labor, 7 Medical Divina PO Box second triSuprvsn [facility], 1522, of preg w poor Dejuan Finn [address], reprodctv or 120, [address] [place], obstet hx, second [place], [address], [id number], tri19 weeks [place], [place], [place] [id number] [place], [address]. tel: , [place]. tel: tel: [phone] Associates Van Suprvsn of preg w Nov-1 Duy Referring In Womens poor reprodctv or 5-201 Srikanth. 700 Provider: Hope LOZANO, obstet hx, second 7 Medical Divina PO Box tri15 weeks [facility], 1522, gestation of Dejuan Finn, 120, [address] [place], [place], [address], [id number], SD, [place], [place] [id number] [place], [address]. tel: , [place]. tel: tel: [phone] Associates Van Suprvsn of preg w Oct-2 Duy Referring In Womens poor reprodctv or 5-201 Srikanth. 700 Provider: Hope LOZANO, obstet hx, first 7 Medical Srikanth PO Box triPap Smear [place] Duy R, 1522, Screening, Dr, Dejuan 700 [place], [email or web address] weeks 120, Medical [place], gestation of [address] [id number], [place], Dejuan 120, [place] [id number] aVn, tel: , [place]. [place], [address] tel: [phone]. [id number] tel:[phone] Family History Family Member Diagnosis Age At Onset Brother Cerebral Palsy Daughter Beare -Saleh Brother Epilepsy Maternal Grandmother Breast Cancer Maternal Grandmother Colon Cancer Immunizations Vaccine Date Status Comments Tdap completed Source: New Immunization Record Influenza, injectable, completed Source: New Immunization Record quadrivalent, preservative free, 3 yrs or older Payers Payer name Insurance type Covered green party ID Authorization(s) [facility] - [id number] Medicaid [employer] [facility] [place] [id number] Medicaid [employer] [facility] [place] [id number] Medicaid Social History Type Description Quantity Date Captured Alcohol Use Details No Caffeine Use Details Unknown Tobacco Use Status Smoking Status Current every day smoker Vital Signs Date / Height Weight BMI Pulse Blood Temperature Respiratory Body Head BMI Time: Rate Pressure Rate Surface Circumference percentile Area 176.30 27.6 / lbs 1 mm[Hg] 1:53 kg/m PM eter (2) Chief Complaint And Reason For Visit Unknown Chief Complaint And Reason For Visit Reason For Referral Reason For Referral Unknown Plan Of Care Date Type Action Status Goal Tobacco cessation counseling completed Appointment Jessica Conner BOOKED Future Order: Radiology Order Diagnostic Mammogram Right Breast Ordered ([id number]) Future Order: Radiology Order Breast Ultrasound Right Breast Ordered ([id number]) Future Order: Radiology Order Complete OB Ultrasound > 14 Ordered Weeks ([id number]) Future Order: Radiology Order Ultrasound OB Follow-up ([id number]) Ordered Date Type Problem Goal Intervention Status [...]
--- OUTSIDE RECORDS SUMMARY | 2017-12-14 06:08 | External Medical Summary | Continuity of Care Document ---
:1990 Author Organization [facility] [place] Address [address] [place], [place] [id number] Phone Allergies, Adverse Reactions, Alerts Substance Reaction Severity Status No Known Drug Allergies Unknown Active Medications Medication Instructions Dosage Effective Dates Status Comments (start - stop) Keflex 500 mg capsule take 1 capsule by - Active ORAL route 3 times every day x 5 days, then q hs remainder of nitrofurantoin take 1 capsule by - Active macrocrystal 50 mg oral route daily capsule for remainder of pregnacy 28 mg take 1 tablet by Not Available - Active iron-800 mcg tablet oral route every day Tylenol 325 mg tablet take 1 tablet by - Active oral route every 4 hours as needed as needed Problems Condition Effective Dates (start - stop) Clinical Status Suprvsn of preg w poor reprodctv or - obstet hx, third tri 30 weeks gestation of - Suprvsn of preg [...] third tri 32 weeks gestation of - Abnormal Pap, LSIL Encounter for suprvsn of normal , third trimester 28 weeks gestation of - Encounter for suprvsn of normal - , second trimester 19 weeks gestation of - Procedures Procedure Date OB Visit No Charge Results Test Name Date and Time Measure Units Reference Range Abnormal Flag Comments Panel Description: Bacteria identified in Urine by Culture CULTURE, URINE, SEE NOTE A CULTURE, URINE, ROUTINE MICRO ROUTINE 16:46:00 NUMBER: [id number] TEST STATUS: PRELIMINARY SPECIMEN SOURCE: URINE SPECIMEN QUALITY: ADEQUATE RESULT: Greater than 100,000 CFU/mL of Escherichia coli , susceptibility test report to follow.REPORT COMMENT:RFASTING:UNKNOWNTest performed at [facility] [id number] [place] [address]Bsiujcom: JACOB AVILA DO,MPH Panel Description: Bacteria identified in Urine by Culture CULTURE, URINE, SEE NOTE A CULTURE, URINE, ROUTINE MICRO ROUTINE 16:46:00 NUMBER: [id number] TEST STATUS: FINAL SPECIMEN SOURCE: URINE SPECIMEN QUALITY: ADEQUATE RESULT: Greater than 100,000 CFU/mL of Escherichia coli E.coli INT JUNI AMOX/CLAVULANATE S <=2 AMPICILLIN S 4 AMP/SULBACTAM S <=2 CEFAZOLIN NR <=4 2 CEFEPIME S <=1 CEFTRIAXONE S <=1 CIPROFLOXACIN S <=0.25 ERTAPENEM S <=0.5 GENTAMICIN S <=1 IMIPENEM S <=0.25 LEVOFLOXACIN S <=0.12 NITROFURANTOIN S <=16 PIP/TAZOBACTAM S <=4 TOBRAMYCIN S <=1 TRIMETHOPRIM/SULFA S <=20S=Susceptible I=Intermediate R=Resistant *=Not TestedNR=Not Reported NN=See Therapy CommentsTHERAPY COMMENTS Note 1: For infections other than uncomplicated UTI caused by E. coli, K. pneumoniae or P. mirabilis: Cefazolin is resistant if JUNI > or=8 mcg/mL. (Distinguishing susceptible versus intermediate for isolates with JUNI < or=4 mcg/mL requires additional testing.) Note 2: For uncomplicated UTI caused by E. coli, K. pneumoniae or P. mirabilis: Cefazolin is susceptible if JUNI <32 mcg/mL and predicts susceptible to the oral agents cefaclor, cefdinir, cefpodoxime, cefprozil, cefuroxime, cephalexin and loracarbef.REPORT COMMENT:RFASTING:UNKNOWNTest performed at [facility] [id number] [place] [address]Cpluscja: JACOB AVILA DO,MPH Advance Directives Directive Yes / No Effective Date File Name Unknown Encounters Encounter Practice Location Reason(s) Diagnoses Date Provider Care Team Description For Visit Members Melissa Starkeyn of preg Mar-1 Duy Referring In Womens w [facility] reprodctv [facility] 700 Provider: souleymane Kim , 8 Medical [facility], [facility], infection of Dejuan Finn [address] [place], urinary tract in 120, [address] [place], , unsp [place], [address], [id number], [email or web address] [facility] weeks gestation [id number] [place], [address]. tel: of , [place]. tel: [phone] tel: [phone] Melissa Araujo Suprshane of preg Mar-1 Duy Referring In Womens Ultrasound w [facility] reprodctv [place]. 700 Provider: souleymane Kimet hx, 8 Medical Div[facility] PO Box third [address], 1522, weeks gestation De[place]an Finn, of 120, [address] [place]AN[place], Van, [address], [id number], [place], [place], [id number] [place], [address]. tel: , [place]. tel: tel: [phone] Melissa Araujo Oct-0 Sobbing In Womens -201 [place]. Hope LOZANO, 8 700 PO Box Medical 1522, Center [place], [facility], [place], [id number], 120, [place], [place]: [place], [address], [place]. tel: [phone] Melissa Araujo Suprvsn of preg Feb-2 Duy Referring In Womens w poor reprodctv 7 [place]. 700 Provider: Hope LOZANO, or obstet hx, 8 Medical [facility] PO Box third tri30 Center [place], 1522, weeks gestation Dejuan Finn [address] [place], of 120, [address] [place], [place], [address], [id number], [place], [place], [id number] [place], [address]. tel: , [place]. tel: tel: [phone] Melissa Araujo Abnormal Pap, Sep-0 Duy Referring In Womens LSILEncounter [place]. 700 Provider: Hope LOZANO, for suprvsn of 8 Medical [facility] PO Box normal [place], 1522, , third Dejuan Finn [address], [email or web address] 120, [address] [place], weeks gestation [place], [address], [id number], of [place], [place], [id number] [place], [address]. tel: , [place]. tel: tel: [phone] Melissa Araujo Unspecified Lump Sobbing Referring In Womens In The Right 2-201 [place]. Provider: Hope LOZANO, Breast, 8 700 Divina PO Box Unspecified Medical [place], 1522, QuadrantSuprvsn Center [address] [place], of preg w Drive, [address] [place], history of [address], [id number], pre-term labor, 120, [place], [place], [address]. tel: triSuprvsn of [place], tel: preg w poor [address], [id number] reprodctv or [place]. obstet hx, tel: second tri24 [id number] weeks gestation of Associates Van Encounter for Dec-1 Duy Referring In Womens suprvsn of Srikanth. 700 Provider: Hope LOZANO, normal 7 Medical Divina PO Box , [facility], 1522, second De[place]an Finn, [email or web address] 120, [address] [place], weeks gestation [place], [address], [id number], of [place], [place], [place] [id number] [place], [address]. tel: , [place]. tel: tel: [phone] Associates Van Suprvsn of preg Dec-1 Duy Referring In Womens Ultrasound w history of Srikanth. 700 Provider: Hope LOZANO, pre-term labor, 7 Medical [facility] PO Box second [place], 1522, triSuprvsn of Dejuan Finnta, preg w poor 120, [address] [place], reprodctv or [place], [address], [id number], obstet hx, [place], [place], [place] second tri19 [id number] [place], [address]. tel: weeks gestation , [place]. tel: of tel: [phone] Associates Van Suprvsn of preg Nov-1 Duy Referring In Womens w poor reprodctv - Srikanth. 700 Provider: Hope LOZANO, or obstet hx, 7 Medical Div[facility] PO Box second tri15 Center [place], 1522, weeks gestation Dejuan Finn, of 120, [address] [place], [place], [address], [id number], DC, [place], [place] [id number] [place], [address]. tel: , [place]. tel: tel: [phone] Associates Van Suprvsn of preg Oct-2 Duy Referring In Womens w poor reprodctv Srikanth. 700 Provider: Hope LOZANO, or obstet hx, 7 Medical Srikanth PO Box first triPap Center Duy R, 1522, Smear Screening, , Dejuan 700 [place], [id number] weeks 120, Medical [place], gestation of [facility] [id number], [place], Dejuan 120, [place] [id number] [place], tel: , [place]. [place], [address] tel: [phone]. [id number] tel:[phone] Family History Family Member Diagnosis Age At Onset Brother Cerebral Palsy Daughter Beare -Saleh Brother Epilepsy Maternal Grandmother Breast Cancer Maternal Grandmother Colon Cancer Immunizations Vaccine Date Status Comments Influenza, injectable, completed Source: New Immunization Record quadrivalent, preservative free, 3 yrs or older Payers Payer name Insurance type Covered republican ID Authorization(s) [facility] - [id number] Medicaid [facility] [id number] Medicaid Social History Type Description Quantity Date Captured Alcohol Use Details No Caffeine Use Details Unknown Tobacco Use Status Smoking Status Current every day smoker Vital Signs Date / Height Weight BMI Pulse Blood Temperature Respiratory Body Head BMI Time: Rate Pressure Rate Surface Circumference percentile Area 168.30 26.3 114/2018 lbs 6 mm[Hg] 4:16 kg/m PM eter (2) Chief Complaint And Reason For Visit Unknown Chief Complaint And Reason For Visit Reason For Referral Reason For Referral Unknown Plan Of Care Date Type Action Status Goal Tobacco cessation counseling completed Appointment Jessica Conner BOOKED Future Order: Radiology Order Diagnostic Mammogram Right Breast Ordered ([id number]) Future Order: Radiology Order Breast Ultrasound Right Breast Ordered ([id number]) Future Order: Radiology Order Complete OB Ultrasound > 14 Ordered Weeks ([id number]) Future Order: Radiology Order Ultrasound OB Follow-up ([id number]) Ordered Date Type Problem Goal Intervention Status [...]
--- OUTSIDE RECORDS SUMMARY | 2017-12-14 06:08 | External Medical Summary | Continuity of Care Document ---
:1988 Author Organization [facility] Address [address] [place], [place] [id number] Phone Allergies, Adverse Reactions, Alerts Substance Reaction [...] Team Description For Visit [facility] [place] Referring [facility] preg w Srikanth. 700 Provider: JOSEP LOZANO reprodctv Medical Divina 1522, or obstet Center [place], 9300 [place], hx, second Dejuan 120, [address] [id number], [place] tri15 weeks [place], [address], tel:[phone] gestation [place]ney MEJIAS 6790 [place] [id number], [place], [address]. [place]. tel:+[phone] tel:[phone] Associates In Van [facility]2016 Srikanth. 700 JOSEP LOZANO Medical 1522, Center [place] Finn [place], Dejuan 120, [id number], [place] Van tel:219 [place], 6790 [id number], [place]. tel:[phone] [facility] of Duy Referring Womens Health preg w Srikanth. 700 Provider: JOSEP LOZANO reprodctv Medical [place] 1522, or obstet Center Duy Finn, Britney [place], hx, first [place]juan 120, 700 Medical [id number], [place] triPap Van [place] tel:9 Smear [place], Dejuan 120, 6790 Screening, [id number], Van [place], [id number] [place]. [id number]. weeks tel: tel: gestation [phone] of Family History Family Member Diagnosis Age At Onset Brother Cerebral Palsy Daughter Bill -Delfino Brother Epilepsy Maternal Grandmother Breast Cancer Maternal Grandmother Colon Cancer Immunizations Vaccine Date Status Comments Influenza, injectable, completed Source: New Immunization Record quadrivalent, preservative free, 3 yrs or older Payers Payer name Insurance type Covered libertarian ID Authorization(s) [facility] [id number] Medicaid [facility] [id number] Medicaid Social History Type Description Quantity Date [...] Radiology Order Breast Ultrasound Right Breast Ordered ([id number]) Date Type Problem Goal Intervention Status Start [...]
--- OUTSIDE RECORDS SUMMARY | 2017-12-14 06:08 | External Medical Summary | Continuity of Care Document ---
:1990 Author Organization [facility] Address [address] [place], [place] [address] Phone Allergies, Adverse Reactions, Alerts Substance Reaction [...] Team Description For Visit Members [facility] [place] Referring [facility] preg w Srikanth. 700 Provider: JOSEP LOZANO reprodctv Medical Divina 1522, or obstet Center Omar [place], 9300 [address] Tan, hx, second Dejuan 120, [address] [id number], [place] tri15 weeks [place], [address], tel:[phone] gestation Britney MEJIAS 6790 of [id number], [place], [address]. [place]. tel:+[phone] tel:[phone] [facility] In Van [facility]2016 Srikanth. 700 JOSEP LOZANO Medical 1522, Center Britney Finn [place], Dejuan 120, [id number], [place] Van tel:219 [place], 6790 [id number], [place]. tel:[phone] [facility] of Duy Referring Womens Health preg w Srikanth. 700 Provider: JOSEP LOZANO reprodctv Medical [place] 1522, or obstet Center Duy Finn, Britney [place], hx, first Dejuan 120, 700 Medical [id number], [place] triPap Van Treichlers tel:9 Smear [place], Dejuan 120, 6790 Screening, [id number], Van [place], [id number] [place]. [id number]. weeks tel: tel: gestation [phone] of Family History Family Member Diagnosis Age At Onset Brother Cerebral Palsy Daughter Bill -Delfino Brother Epilepsy Maternal Grandmother Breast Cancer Maternal Grandmother Colon Cancer Immunizations Vaccine Date Status Comments Influenza, injectable, completed Source: New Immunization Record quadrivalent, preservative free, 3 yrs or older Payers Payer name Insurance type Covered constitution party ID Authorization(s) [facility] [id number] Medicaid [facility] [id number] Medicaid Social History Type Description Quantity Date [...] Radiology Order Breast Ultrasound Right Breast Ordered ([id number]) Date Type Problem Goal Intervention Status Start [...]
--- OUTSIDE RECORDS SUMMARY | 2017-12-14 06:08 | External Medical Summary | Continuity of Care Document ---
:1990 Author Organization [facility] Address [address] [place], [place] [id number] Phone Allergies, Adverse Reactions, Alerts Substance Reaction Severity Status No Known Drug Allergies Unknown Active Medications Medication Instructions Dosage Effective Dates Status Comments (start - stop) Keflex 500 mg take [...] third trimester 34 weeks gestation of - Suprvsn of preg [...] third trimester 36 weeks gestation of - Procedures Procedure Date OB Visit No Charge Results Test Name Date and Time Measure Units Reference Range Abnormal Flag Comments Unknown Advance Directives Directive Yes / No Effective Date File Name Unknown Encounters Encounter Practice Location Reason(s) Diagnoses Date Provider Care Team Description For Visit Members Melissa Araujo Suprvsn of preg w Nov-1 Duy Referring In Womens history of 1-201 Srikanth. 700 Provider: Hope LOZANO, pre-term labor, 8 [facility] [address] [facility], 1522, trimesterSuprvsn , [place] [address] [place], of preg w poor [address], [address] [place], reprodctv or [place], [address], [id number], obstet hx, third [place], [place], [facility] [place] [id number] [place], [address]. tel:[phone] suprvsn of normal , [place]. tel:+ [phone] , third tel: [phone] [email or web address] weeks [id number] gestation of Associates [facility] Encounter for Apr-0 Duy Referring In Womens suprvsn of normal 6-201 Srikanth. 700 Provider: Hope LOZANO, , third 8 Medical Srikanth PO Box weeks Center [place], 1522, gestation of [place] Finn, 120, Medical [facility] [id number], [place], [place] 120, [place] [id number] [place], tel: , [place]. [place], tel:[phone]. [phone] tel:[phone] Melissa Araujo Encounter for Mar-2 Duy Referring In Womens suprvsn of normal 3-201 Srikanth. 700 Provider: Hope LOZANO, , third 8 [facility] [address] [email or web address] weeks [facility], 1522, gestation of [place]juan Finn Arnie Tan, [address] [facility], [address], [id number], [place], [place] [id number] [place], [address]. tel: , [place]. tel: tel: [phone] Melissa Araujo Suprvsn of preg w Mar-1 Duy Referring In Womens poor reprodctv or 4-201 Srikanth. 700 Provider: Hope LOZANO, obstet hx, third 8 [facility] [address] [facility] [place], 1522, of urinary tract [place]ju[place] [address] [place], in , [address] [place], unsp [email or web address] [place], [address], [id number], weeks gestation [place], [place] [id number] [place], [address]. tel: , [place]. tel: tel: [phone] Melissa Araujo Suprvsn of preg w Mar-1 Duy Referring In Womens Ultrasound poor reprodctv or 4-201 Srikanth. 700 Provider: Hope LOZANO, obstet hx, third 8 [facility] PO Box tri32 weeks [facility], 1522, gestation of [place] Finn, [address], [address] [facility], [address], [id number], [place], [place] [id number] [place], [address]. tel: , [place]. tel: tel: [phone] [facility] Suprvsn of preg w Feb-2 Duy Referring In Womens poor reprodctv or 7-201 Srikanth. 700 Provider: Hope LOZANO, obstet hx, third 8 [facility] PO Box tri30 weeks [facility], 1522, gestation of [place]ju[place] [address] [place], [address] [place], [place], [address], [id number], [place], [place], [id number] [place], [address]. tel: , [place]. tel: tel: [phone] [facility] Abnormal Pap, Feb-0 Duy Referring In [facility] 9-201 Srikanth. 700 Provider: coral Kimn of normal 8 [facility] [address] , third [facility] [place], 1522, [email or web address] weeks [place]ju[place] [address] [place], gestation of 120, [address] [place], [place], [address], [id number], [place], [place], [id number] [place], [address]. tel: , [place]. tel: tel: [phone] [facility] Unspecified Lump Aug- Sobbing Referring In Womens In The Right 2-201 [place]. Provider: Hope LOZANO, Breast, 8 700 [facility] [address] Unspecified Medical [place], 1522, [facility] [address] [place], of preg w history [address], [address] [place], of pre-term Suite [address], [id number], labor, second 120, [place], [place], [address]. tel: preg [place], [place]: [place] [phone], [id number] obstet hx, second [place]. tri24 weeks tel: gestation of [id number] Associates [facility] Encounter for Jul- Duy Referring In Womens suprvsn of normal 4-201 [place]. 700 Provider: Hope LOZANO, , second 7 [facility] [address] Box [email or web address] weeks [facility], 1522, gestation of [place] [address] [place], [address] [place], [place], [address], [id number], [place], [place], [id number] [place], [address]. tel: , [place]. tel: tel: [phone] [facility] Suprvsn of preg w Dec-1 Duy Referring In Womens Ultrasound history of 4-201 Srikanth. 700 Provider: Health BLAKE, pre-term labor, 7 [facility] PO Box second triSuprvsn [facility], 1522, of preg w poor [place] Finn [address] [place], reprodctv or 120, [address] [place], obstet hx, second [place], [address], [id number], tri19 weeks [place], [place], [place] [id number] [place], [address]. tel: , [place]. tel: tel: [phone] Melissa Araujo Suprvsn of preg w Nov- Duy Referring In Womens poor reprodctv or 5-201 Srikanth. 700 Provider: Hope LOZANO, obstet hx, second 7 Medical [facility] PO Box tri15 weeks [facility], 1522, gestation of [place] [address] [place], [address] [place], [place], [address], [id number], [place], [place], [id number] [place], [address]. tel: , [place]. tel: tel: [phone] Melissa Araujo Suprvsn of preg w Oct-2 Duy Referring In Womens poor reprodctv or 5-201 Srikanth. 700 Provider: Hope LOZANO, obstet hx, first 7 Medical Srikanth PO Box [facility] [place], 1522, Screening, , [place] [address] [place], [id number] weeks 120, Medical [place], gestation of [place] , [place], [facility] 120, [place] [id number] [place], tel: , [place]. [place], tel: [phone]. [id number] tel:[phone] Family History Family Member Diagnosis Age At Onset Brother Cerebral Palsy Daughter Beare -Saleh Brother Epilepsy Maternal Grandmother Breast Cancer Maternal Grandmother Colon Cancer Immunizations Vaccine Date Status Comments Tdap completed Source: New Immunization Record Influenza, injectable, completed Source: New Immunization Record quadrivalent, preservative free, 3 yrs or older Payers Payer name Insurance type Covered constitution party ID Authorization(s) [facility] - [id number] Medicaid [employer] [place] [id number] Medicaid [employer] [place] [id number] Medicaid Social History Type Description Quantity Date Captured Alcohol Use Details No Caffeine Use Details Unknown Tobacco Use Status Smoking Status Current every day smoker Vital Signs Date / Height Weight BMI Pulse Blood Temperature Respiratory Body Head BMI Time: Rate Pressure Rate Surface Circumference percentile Area 171.70 26.8 110/ lbs 9 mm[Hg] 2:00 kg/m PM eter (2) Chief Complaint And Reason For Visit Unknown Chief Complaint And Reason For Visit Reason For Referral Reason For Referral Unknown Plan Of Care Date Type Action Status Goal Tobacco cessation counseling completed Appointment Jessica Conner BOOKED Appointment Jessica Conner BOOKED Appointment Jessica Conner BOOKED Future Order: Radiology Order Diagnostic Mammogram Right Breast Ordered ([id number]) Future Order: Radiology Order Breast Ultrasound Right Breast Ordered ([id number]) Future Order: Radiology Order Complete OB Ultrasound > 14 Ordered Weeks ([id number]) Future Order: Radiology Order Ultrasound OB Follow-up ([id number]) Ordered Date Type Problem Goal Intervention Status [...]
[2017-12-14] MEDS ORDERED: ACETAMINOPHEN 500 MG TABLET PO PRN ×2 (06:12→23:24)
[2017-12-14] MEDS ORDERED: METHYLERGONOVINE 0.2 MG/ML INJECTION IM PRN (06:12)
[2017-12-14] MEDS ORDERED: CARBOPROST 250 MCG/ML INJECTION IM PRN (06:12)
[2017-12-14] MEDS ORDERED: MAG-AL + SIM ORAL LIQUID 30ml PO PRN ×2 (06:12→23:24)
[2017-12-14] MEDS ORDERED: CALCIUM CARBONATE Chewable 500mg TABLET PO PRN ×2 (06:12→23:24)
[2017-12-14] MEDS ORDERED: LIDOCAINE 1% (10mg/ml) 2mL INJ PF SDV ID PRN (06:12)
[2017-12-14] MEDS: LR 1,000 ML IV PRN ×3 (06:35→10:24)
[2017-12-14 06:50] VITALS: BMI 28.0
[2017-12-14] MEDS: OXYTOCIN DRIP 30 UNIT/500 ML ML IV PRN ×2 (07:08→20:58)
[2017-12-14] MEDS: D5LR 1,000 ML IV PRN ×2 (07:08→17:36)
[2017-12-14] MEDS ORDERED: ONDANSETRON 4 MG/2 ML INJECTION IVP PRN (10:04)
[2017-12-14] MEDS ORDERED: ROPIVACAINE 1% 10MG/ML INJ 200 MG, SUFentanil 50 MCG in NS 100 ML EPI PRN (10:04)
[2017-12-14] MEDS ORDERED: NALOXONE 0.4 MG/ML INJECTION IVP PRN (10:04)
[2017-12-14] MEDS ORDERED: DiphenhydrAMINE 50 MG/ML INJECTION IVP PRN (10:04)
--- NOTE | 2017-12-14 10:08 | Anesthesia Preoperative Report ---
Anesthesia Epidural/Spinal Rec - Date and Time Date: 12/14/17 Plan: Epidural - Vital Signs Vital Signs: Temperature 97.6 F 12/14/17 06:43 Pulse Rate 72 12/14/17 06:43 Respiratory Rate 16 12/14/17 06:43 Blood Pressure 106/57 12/14/17 06:43 Pulse Oximetry 98 12/14/17 06:43 NPO since: 12/14/17 0000 /Para: P:1 Heart Rate: 130 Height and Weight: 67 IN 81 KG - Medictaions & Allergies Inpatient Medications: Current Medications Acetaminophen (Tylenol) 500 - 1,000 mg PO Q4H PRN PRN Reason: Pain Al Hydroxide/Mg Hydroxide (Maalox Plus) 30 ml PO Q3H PRN PRN Reason: Indigestion Calcium Carbonate (Tums) 500 - 1,000 mg PO Q2H PRN PRN Reason: Indigestion Carboprost Tromethamine (Hemabate) 250 mcg IM O PRN PRN Reason: .Downtime Dextrose/Lactated Ringer's (Dextrose 5%-Lactated Ringers) 1,000 mls @ 125 mls/ hr IV .Q8H PRN PRN Reason: Labor Last Admin: 12/14/17 07:08 Dose: 125 mls/hr Oxytocin (Pitocin Drip) 30 unit in 500 mls @ 2 mls/hr IV .Q24H PRN; Protocol PRN Reason: Induction/Augmentation Last Admin: 12/14/17 07:08 Dose: 2 mls/hr Lactated Ringer's (Lactated Ringers) 1,000 mls @ 999 mls/hr IV .Q1H1M PRN Last Admin: 12/14/17 08:34 Dose: 999 mls/hr Lidocaine HCl (Xylocaine-Mpf 1% Vial) 0.2 mg ID O PRN PRN Reason: IV Start Methylergonovine Maleate (Methergine) 0.2 mg IM O PRN Misoprostol (Cytotec) 800 mcg MN ONCE PRN Allergies/Adverse Reactions: Allergies Allergy/AdvReac Type Severity Reaction Status Date / Time No Known Allergies Allergy Verified 12/14/17 07:10 - Home Medications Home Medications: Home Medications Medication Instructions Recorded Confirmed Type Vit 108/Iron/Folic AC 1 each PO DAILY 12/14/17 12/14/17 History [ One Tablet] - Medical History Gastrointestional: Reports: Gastroesophageal Reflux Disease Neuro/Musculoskeletal: Comment Only: Back Problems (Scoliosis) Other History: Reports: Now - Surgical History Reproductive Surgery/Treatment: DENIES: Section Hx Family Anesthesia Reaction: No History of Motion Sickness: No - Social History Smoking Status: Current every day smoker Substance Use Type: does not use Alcohol Intake Frequency: does not drink Hx Chewing Tobacco Use: No - Pertinent Findings Lab Data: CBC and BMP 12/14/17 06:41 - Physical Exam Respiratory Exam: lungs clear Cardiovascular Exam: regular rate and rhythm - Airway Assessment Mallampati Score: II TMD: 3 Fingerbreadths Neck Extension: good Teeth: poor dentation, other (MULTIPLE MISSING TEETH, ROTTING AT GUMS ON REMAINDER OF TEETH) Overall Assessment: no airway concerns - ASA ASA Score: 2 - Discussion Discussion: Discussed risks/options/alternatives of anesthesia and questions answered. Patient consents. Nursing pain assessment noted. Anesthesia Discussion: spouse Attestation Statement: Prior to the delivery of any anesthetic medication, I examined the patient, developed the plan, obtained the patient's consent and discussed the risk and benefits of the procedure with the patient/guardian.
[2017-12-14] MEDS ORDERED: DiphenhydrAMINE 25 MG CAPSULE PO PRN (23:24)
[2017-12-14] MEDS ORDERED: OXYTOCIN DRIP 30 UNIT/500 ML ML IV SCH (23:24)
[2017-12-14] MEDS ORDERED: HYDROCORTISONE 2.5% CREAM 30gm RECTALLY PRN (23:24)
[2017-12-14] MEDS: IBUPROFEN 800 MG TABLET PO PRN (23:29)
[2017-12-14] MEDS: HYDROCODONE/APAP 5mg/325mg TABLET PO PRN (23:30)
[2017-12-14] MEDS ORDERED: NICOTINE 21 MG PATCH TD PRN (23:56)
[2017-12-15] MEDS: IBUPROFEN 800 MG TABLET PO PRN ×2 (09:35→21:34)
[2017-12-15] MEDS: DOCUSATE CALCIUM 240 MG CAPSULE PO SCH (09:35)
[2017-12-15] MEDS: HYDROCODONE/APAP 5mg/325mg TABLET PO PRN ×3 (09:35→21:35)
--- NOTE | 2017-12-15 09:38 | Progress Note ---
OB PP Progress Note Free Text - Date Date: 12/15/17 - Progress Note Progress Note: vss af labs ok pt muscles achy this am q&a continue care path-krb
--- NOTE | 2017-12-15 09:58 | Labor and Delivery Note ---
DATE OF DELIVERY: 12/14/2017 DIAGNOSES 1. 27-year-old white female, G2, P1, LC0, at 40.0 weeks gestational age. 2. Pitocin induction for history of in previous . 3. Epidural anesthesia. 4. Artificial rupture of membranes. 5. Intrauterine pressure monitor. 6. Spontaneous vaginal delivery. 7. Nuchal cord x 1. 8. Second-degree midline episiotomy. 9. Female , Apgars, 3380 g (7 pounds 7.2 ounces), (Elo Zimmerman) . BRIEF HISTORY This is a patient of mine who was brought in for an induction for a history of . Her last was complicated by an early delivery and . Cervix was favorable. Pitocin reached a maximum of 36 milliunits a minute. Contractions were inadequate with an IUPM placed, so we increased the Pitocin to adequacy at 36. Then we began tapering it down. There were multiple variable decelerations and occasional lates but otherwise heart tones were reassuring. We eventually made it to complete dilation, OA presentation. We began pushing. Just prior to delivery, after talking to the patient, I did do a second-degree midline episiotomy to expedite delivery. Infant was bulb suctioned after delivery of the head and then again after delivery of the body. There was a nuchal cord x 1 that was delivered through. The cord was allowed to drain for about a emvyiu-bes-z-half and then it was doubly clamped and cut, and the was received in the isolette. Placenta delivered spontaneously and was intact. There was a second-degree midline episiotomy present with no extension, so it was repaired with 2-0 Vicryl in the usual fashion. A couple of simple interrupted 3-0 chromics were used to bring the skin edges together at the introitus. EBL was 350. Placenta was held. At the time of dictation mother and infant are doing well. [facility]
[2017-12-15 12:08] VITALS: O2SAT 98
[2017-12-15] MEDS: NICOTINE PATCH REMOVAL TD SCH (12:39)
[2017-12-16] MEDS: HYDROCODONE/APAP 5mg/325mg TABLET PO PRN ×2 (02:36→10:32)
[2017-12-16 08:30] VITALS: BP 103/58; PULSE 67; RESP 18; TEMP 97.9
[2017-12-16] MEDS: IBUPROFEN 800 MG TABLET PO PRN (10:32)
[2017-12-16] MEDS: DOCUSATE CALCIUM 240 MG CAPSULE PO SCH (10:32)
[2017-12-16] MEDS: NICOTINE PATCH REMOVAL TD SCH (10:33)
--- NOTE | 2017-12-16 10:38 | Progress Note ---
OB PP Progress Note Free Text - Date Date: 12/16/17 - Progress Note Progress Note: vss af no c/o dc instructions reviewed f/u 5-6wks q&a-krb
== END 2017-12-16 11:46 | disposition home or self-care (01) | DRG 775 ==
LOC: MC 05:58
PROVIDERS: ADMIT Obstetrics & Gynecology; ATTEND Obstetrics & Gynecology